=== PATIENT | male | born 1945 | race Caucasian/White ===

== ENCOUNTER → 2016-07-13 | Outpatient (CLI) | payer OTHER, MEDICARE ==
[~2016-07-13] VITALS: Ht 175.3 cm; Wt 111.1 kg
[~2016-07-13] MED LIST: BUDESONIDE EC3 MG PO; CARBIDOPA-LEVO1 EAC9 PO; FOLIC ACID1 MG PO; LIPITOR10 MG PO; REQUIP XL2 MG PO; SULFASALAZINE500 M5 PO
--- NOTE | ~2016-07-13 | S ---
[facility] [place] [address] SURGICAL PATH RPT PROCEDURE Name: EPIFANIO SORIA JR Room #: REG [facility]#: [id number] Admission: 07/13/16 Date of : 41 Discharge: Report #: [id number] Path Case #: [id number] PATHOLOGY REPORT COLLECTION DATE: 07/13/2016 RECEIVED DATE: 07/14/2016 SUBMITTING PHYS: Dr. Hugo Baires OTHER PHYS: Dr. Nicholas Reed SPECIMEN(S) RECEIVED: A.Bx of cecum and ascending colon B.Polyp at distal ascending colon C.Bx at distal ascending colon of polypectomy site D.Bx of transverse colon E.Bx of descending colon F.Bx of sigmoid colon G.Bx of rectum * * * * * * * * * * * * FINAL DIAGNOSIS: A. Large intestine, cecum and ascending colon, endoscopic biopsy: - One fragment showing a tubular adenoma without high grade dysplasia. - Remainder fragments showing mild chronic active colitis, history of Crohn's disease. - Negative for dysplasia or malignancy in the remaining fragments. B. Polyp, at distal ascending colon, endoscopic biopsy: - Tubular adenoma. - Negative for high grade dysplasia. C. Large intestine, at distal ascending colon of polypectomy site, endoscopic biopsy: - Multiple fragments showing tubular adenoma. - Negative for high grade dysplasia. D. Large intestine, biopsy of transverse colon, endoscopic biopsy: - Moderate chronic active colitis, history of Crohn's disease. - Negative for dysplasia. E. Large intestine, descending colon, endoscopic biopsy: - Moderate chronic active colitis, history of Crohn's disease. - Negative for dysplasia. F. Polyp, sigmoid colon, endoscopic biopsy: - Fragments compatible with an inflammatory polyp associated with moderate active colitis, history of Crohn's disease. - Negative for dysplasia or malignancy. G. Large intestine, rectum, endoscopic biopsy: - Mild chronic active colitis, history of Crohn's disease. - Negative for dysplasia or malignancy. COMMENT: [address] [address] [place] [address] SURGICAL PATH RPT PROCEDURE Name: EPIFANIO SORIA JR Room #: [facility]#: [id number] Admission: 07/13/16 Date of : 41 Discharge: Report #: [id number] Path Case #: [id number] Co-review (parts A, B and C only): Dr. Adenike Lynch. (IUV:csd; d/t: 07/17/2016) PATHOLOGIST: Verónica Cardozo M.D. REPORT ELECTRONICALLY SIGNED BY: Verónica Cardozo M.D. DATE/TIME: 07/17/2016 17:31 * * * * * * * * * * * * GROSS PATHOLOGY: A. Received in formalin labeled "Epifanio Rowland Jr., biopsy of cecum and ascending," are seven segments of avery soft tissue measuring 1.0 x 0.8 x 0.1 cm in aggregate dimensions and ranging from 0.2 to 0.5 cm in maximum dimension. The specimen is submitted entirely in cassette A1. B. Received in formalin labeled "Gilbert Rowland Jr., polyp at distal ascending colon," are two segments of avery soft tissue measuring 0.5 x 0.3 x 0.1 cm in aggregate dimensions and ranging from 0.1 to 0.5 cm in maximum dimension. The specimen is submitted entirely in cassette B1. C. Received in formalin labeled "Epifanio Rowland Jr., biopsy at distal ascending colon of polypectomy site," are eight segments of avery soft tissue measuring 1.1 x 1.0 x 0.2 cm in aggregate dimensions and ranging from 0.1 to 0.5 cm in maximum dimension. The specimen is submitted entirely in cassette C1. D. Received in formalin labeled "Epifanio Rowland Jr., biopsy of transverse colon," are seven segments of avery soft tissue measuring 1.0 x 1.0 x 0.1 cm in aggregate dimensions and ranging from 0.2 to 0.6 cm in maximum dimension. The specimen is submitted entirely in cassette D1. E. Received in formalin labeled "Epifanio Rowland Jr., biopsy of descending colon," are four segments of avery soft tissue measuring 0.9 x 0.9 x 0.2 cm in aggregate dimensions and ranging from 0.4 to 0.5 cm in maximum dimension. The specimen is submitted entirely in cassette E1. F. Received in formalin labeled "Epifanio Rowland Jr., polyp sigmoid colon," are four segments of avery soft tissue measuring 0.8 x 0.7 x 0.2 cm in aggregate dimensions and ranging from 0.3 to 0.5 cm in maximum dimension. The specimen is submitted entirely in cassette F1. G. Received in formalin labeled "Epifanio Rowland Jr., biopsy of rectum," are five segments of avery soft tissue measuring 1.0 x 0.9 x 0.1 cm in aggregate dimensions and ranging from 0.2 to 0.7 cm in maximum dimension. The specimen is submitted entirely in cassette G1. (CAA; 07/15/2016) CLINICAL HISTORY: [facility] [address] [place] [address] SURGICAL PATH RPT PROCEDURE Name: EPIFANIO SORIA Room #: REG [facility].#: [id number] Admission: 07/13/16 Date of : 41 Discharge: Report #: [id number] Path Case #: [id number] History of polyps, history of Crohn's disease INITIAL CPT CODE(S): A; 77639 B; 40166 C; 23451 D; 31601 E; 39213 F; 05798 G; 75450 Professional services performed by [facility] at [facility] [address] [place] [address] Technical services performed by [facility] at [address] [place] [address], [facility] [address], [place] [address]. [facility] [address] [place] [address] PHONE: [phone] DIRECTOR: Jalen Palmer M.D. * * * END OF REPORT * * *
--- NOTE | ~2016-07-13 | P ---
[facility] [place] [address] PROCEDURE REPORT Name: FRAN SORIA JR Room #: REG [facility]#: [id number] Admission: 07/13/16 Attend Phys: Hugo Baires MD Discharge: Date of : 41 Report #: [id number] THIS REPORT FOR: //name// CC: Hugo Reed DO DATE OF SERVICE: 07/13/2016 BRIEF HISTORY: The patient is a 71-year-old male known to me with a history of Crohn's disease and family history of colon cancer in his mother. He underwent a colonoscopy in early April of this year, at which time, there was found to be a sessile mucus covered polyp in the distal ascending colon. It is also noted he had evidence of active inflammatory disease by biopsy. The polyp was difficult to remove, although it was thought to be no more than about 8 mm. Pathology revealed this to be a tubular adenoma arising in an area of chronic active colitis, dysplasia. High grade dysplasia was not identified. He was placed on budesonide and taking 9 mg daily and continues on budesonide and today presents for repeat colonoscopy to evaluate the polypectomy site which had been previously tattooed. PREOPERATIVE DIAGNOSIS: Crohn's disease with polyp, questionably incomplete removed. POSTOPERATIVE DIAGNOSES: 1. Polypoid polyp distal ascending colon. 2. Diffuse active colitis, mild to moderate. MEDICATIONS: Deep sedation with propofol per anesthesia. SPECIMEN: 1. Biopsies of cecum and ascending colon. 2. Polyp, distal transverse colon, previous polypectomy site. 3. Biopsies of mucosa around polypectomy site, distal ascending colon. 4. Biopsies, transverse colon. 5. Biopsy, descending colon. 6. Biopsy, sigmoid colon. 6. Biopsies of rectum. ESTIMATED BLOOD LOSS: 3 mL. PROCEDURE: Colonoscopy to cecum with snare polypectomy, biopsy and argon plasma coagulation of polypectomy site. FINDINGS: Prior to propofol sedation, procedure of colonoscopy was reviewed with the patient as well as potential risks and its complications. He indicates [address] [address] PROCEDURE REPORT Name: FRAN SORIA Room #: [facility]#: [id number] Admission: 07/13/16 Attend Phys: Hugo Baires MD Discharge: Date of : 43 Report #: [id number] he understands and desires to proceed. DESCRIPTION OF PROCEDURE: With the patient in left lateral decubitus position, digital examination was completed which revealed no abnormalities. Subsequently, the Settle video colonoscope was introduced into the rectum, advanced under direct vision to the cecum. Done with minimal difficulty. The cecum was identified by the appendiceal orifice. I was not able to intubate the ileocecal valve, but in the retroflexed position, I could see the mouth of the ileocecal valve. It had previously been ulcerative. It was not actually ulcerative; however, there appeared to be some evidence of colitis. The mouth of the ileocecal valve was opened, but it was stenotic. Liquidy material was flowing through the stenotic ileocecal valve. At that point, the scope was slowly withdrawn and careful circumferential views were obtained. There were limitations of the prep. We cleaned up as well as possible. We were able to clean up well enough to see the proximal colon fairly well. As we withdrew the scope, there appeared to be mild to moderate inflammatory disease with loss of vascularity, mild friability of mucosa but not extensive ulceration or deep ulceration. There were some patchy areas which appeared to be less involved or normal appearing. Multiple random biopsies obtained of the cecum and ascending colon. The old polypectomy site was identified in the distal ascending colon. There was irregularity of mucosa. There was an area of heaped up mucosa about 5-6 mm across. This was removed by cold snare polypectomy. There were some irregularities of the surrounding mucosa, but it was all flat and we could not engage into the polypectomy snare. We then obtained biopsies and placed in a separate container immediately surrounding the polypectomy site. Thereafter, we treated the area with a 10-Sami argon plasma coagulation with good effect. There was good hemostasis. As the scope was withdrawn, once again there was a pattern of a mild to moderate patchy diffuse colitis throughout the colon. Multiple random biopsies were obtained. No other polypoid lesions were seen. Again, there were limitations of the prep and small lesions could have been overlooked, but the prep was salvaged with cleanup in the proximal colon to accomplish our goals today of evaluating and treating the old polypectomy site. The scope was withdrawn in the rectum. Upon retroflexion, the mucosa appeared to be fairly normal and no fistulas or ulcers were seen at the anal verge. Scope was withdrawn. The patient tolerated the procedure well. CONDITION OF THE PATIENT UPON DISCHARGE: Following procedure, the patient drowsy and arousable. He will be discharged to home when fully ambulatory. INSTRUCTIONS TO THE PATIENT AND FAMILY AT THE TIME OF DISCHARGE: Findings as noted above, the old polypectomy site was further cleaned up and treated today. We will follow up on biopsies and make further recommendations. We need to be concerned about this polyp as it originated from an area of active inflammatory bowel disease. We will follow up on biopsies, but we will likely have him return in another year to further evaluate the site. [address] [address] PROCEDURE REPORT Name: FRAN SORIA JR Room #: REG [facility]#: [id number] Admission: 07/13/16 Attend Phys: Hugo Baires MD Discharge: Date of : 43 Report #: [id number] He does have endoscopy, he does have evidence of qyga-ip-qbrhqebl disease. We will follow up on biopsies and have him return to see me in followup in the office. The patient had been on budesonide for nearly 3 months at this point in time and continues to have inflammatory disease. Symptomatically, he has improved. We will also obtain laboratory studies. May need to consider changes in his therapy for his inflammatory bowel disease. <ELECTRONICALLY SIGNED> By: Hugo Baires MD 07/14/16 1151 0831 1154 Hugo Baires MD /nt
== END ==
LOC: GI 06:23
DX: D12.2 Benign neoplasm of ascending colon (principal); D12.4 Benign neoplasm of descending colon; K63.5 Polyp of colon; K52.89 Other specified noninfective gastroenteritis and colitis; E78.00 Pure hypercholesterolemia, unspecified; K21.9 Gastro-esophageal reflux disease without esophagitis; G20 Parkinson's disease; Z87.891 Personal history of nicotine dependence; Z80.0 Family history of malignant neoplasm of digestive organs; Z85.46 Personal history of malignant neoplasm of prostate
CPT/HCPCS: 62110; 62900

== ENCOUNTER 2016-07-28 16:42 | Inpatient (IN) | payer OTHER, MEDICARE ==
[~2016-07-28] VITALS: Ht 175.3 cm; Wt 113.4 kg
--- NOTE | ~2016-07-28 | HC ---
[facility] [place] [address] CONSULTATION Name: FRAN SORIA JR Room #: 439-P [facility] IN .R.#: [id number] Admission: 07/28/16 Attend Phys: Wai Lopez MD Discharge: Date of : 43 Report #: [id number] THIS REPORT FOR: //name// CC: Wai Reed DATE OF SERVICE: 07/29/2016 DATE OF SERVICE: 07/29/2016. REASON FOR CONSULTATION: Abdominal pain and bloating with history of inflammatory bowel disease. BACKGROUND: The patient is a 71-year-old white male admitted through the emergency room with complaints of abdominal pain. He does have a history of inflammatory bowel disease and colon polyps. The patient relates that in 1999, he was diagnosed with Crohn's disease per colonoscopy by Dr. Covarrubias. A repeat colonoscopy was performed 7 years later for surveillance due to his history of Crohn's disease, and the patient relates that a large polyp that was unable to be removed as an outpatient was present. A repeat colonoscopy 2 weeks ago was performed by Dr. Baires with removal of 6 polyps that were able to be successfully removed. He relates that he was told that these polyps were benign, but repeat colonoscopy would be recommended in 1 year. With evidence of active inflammation, he was given a prescription for Entocort. With of Lialda, he was to take sulfasalazine. He has had multiple symptoms and feels that some of his symptoms may be related to the use of sulfasalazine such as headaches, weakness, nausea, anorexia, dizziness. He has had a more persistent nonproductive cough since taking sulfasalazine. He relates that his temperature was 100.2 yesterday and has been intermittently mildly elevated. He has had no other signs of infection other than intermittent cough. PAST MEDICAL HISTORY: He does have a history of Parkinson's disease, hyperlipidemia, hypertension, chronic gastroesophageal reflux, prostate cancer. He has had complicated diverticulitis with perforation, requiring partial colectomy and temporary colostomy. He underwent repair of an incisional hernia. HOME MEDICATIONS: Carbidopa/levodopa 25/100 two tablets p.o. q.i.d., Requip 2 mg t.i.d., atorvastatin 10 mg per day, folic acid 1 mg per day, sulfasalazine 1000 mg p.o. b.i.d., budesonide 10 mg per day. ALLERGIES: AUGMENTIN. SOCIAL HISTORY: He does not currently smoke cigarettes but has done in the past. He may drink alcohol occasionally. REVIEW OF SYSTEMS: [address] [address] CONSULTATION Name: FRAN SORIA Room #: 439-P [facility]..#: [id number] Admission: 07/28/16 Attend Phys: Wai Lopez MD Discharge: Date of : 43 Report #: [id number] CONSTITUTIONAL: He has had low-grade fevers as documented above. He has felt some general malaise. RESPIRATORY: He has had nonproductive cough, but no significant shortness of breath or chest pain. GASTROINTESTINAL: As per HPI. GENITOURINARY: He denies dysuria or hematuria. SKIN: He has had no skin rashes. EXTREMITIES: He has had no significant peripheral edema. PHYSICAL EXAMINATION: GENERAL: He appeared alert and in no acute distress, readily conversant and appropriate in conversation and afebrile. VITAL SIGNS: Blood pressure 110/66, pulse 72. HEENT: No scleral icterus. NECK: Supple, without lymphadenopathy. HEART: Rate and rhythm regular. LUNGS: Clear to auscultation. ABDOMEN: Soft, moderately obese with no obvious hepatosplenomegaly or palpable mass. He has an easily reducible hernia underlying mesh in the right upper abdomen. EXTREMITIES: He has no significant peripheral edema. LABORATORY STUDIES: On 07/28/2016, white blood cell count 10.4; hemoglobin 13.7; and platelet count 131,000. Initial metabolic profile included sodium 130, potassium 3.7, BUN 16, creatinine 1.1, and glucose 129. BNP was elevated at 333. DIAGNOSTIC DATA: Chest x-ray on July 28 revealed cardiac prominence without obvious other changes of congestive heart failure and some elevation of the right diaphragm with no consolidating infiltrates. CT abdomen and pelvis with contrast did reveal gaseous distention of the cecum and proximal colon which was redundant, moderate stool in the colon and a fluid distended appendix without wall thickening or stranding. IMPRESSION: 1. Constipation with abdominal bloating. 2. Inflammatory bowel disease with recent evidence of active colitis. 3. Multiple colon polyps, status post colonoscopy 2 weeks ago. 4. Nonspecific anorexia, nausea, low-grade fevers and malaise. RECOMMENDATIONS: 1. Discontinue sulfasalazine. 2. Continue Entocort. 3. MiraLax 17 grams per day. [facility] [address] [place] [address] CONSULTATION Name: FRAN SORIA JR Room #: 43-P ADM IN M.R.#: [id number] Admission: 07/28/16 Attend Phys: Wai Lopez MD Discharge: Date of : 43 Report #: [id number] 4. If clinically improved, he may be discharged and keep his appointment with Dr. Baires as already scheduled on 07/31/2016. <ELECTRONICALLY SIGNED> By: Ahmet Alegria MD 07/30/16 0745 1242 [id number] Ahmet Alegria MD /nt
--- NOTE | ~2016-07-28 | EKG ---
[address] [address] ELECTROCARDIOGRAM REPORT Name: FRAN SORIA Room #: 439-P [facility] IN ..#: [id number] Admission: 07/28/16 Attend Phys: Wai Lopez MD Discharge: Date of : 43 Report #: [id number] THIS REPORT FOR: //name// [facility] ED Test Date: 2016-07-28 Test Time: 17:42:24 Pat Name: FRANFAHEEM DIETRICHSORIA Department: Room: 43 Gender: M Reporting Specialist: Adilson ELIZONDO : 1945 Requested By: Bela Fields Order Number: [id number] MD: Lui Delgado Measurements Intervals Elsa Rate: 80 P: 37 SC: 184 QRS: -3 QRSD: 102 T: 21 QT: 366 QTc: 423 Interpretive Statements Sinus rhythm No previous ECG available for comparison Electronically Signed On 07-29-2016 16:18:15 CDT by Lui Delgado [email or web address] <ELECTRONICALLY SIGNED> By: Lui Delgado MD 07/29/16 [phone] Lui Delgado MD /DOMENIC
[2016-07-28 16:45] VITALS: BP 121/78
[2016-07-28 17:27] LABS: URINE BLOOD TRACE (Negative); URINE COLOR YELLOW; URINE GLUCOSE-RANDOM* NEGATIVE (Negative); URINE KETONES 2+ (Negative); URINE NITRITE NEGATIVE (Negative); URINE PROTEIN (DIPSTICK) 1+ (Negative); URINE SPECIFIC GRAVITY 1.025 (1.003-1.035)
[2016-07-28 17:28] LABS: URINE BILIRUBIN NEGATIVE (Negative)
[2016-07-28 17:30] LABS: SQUAMOUS None Seen /LPF (0-3)
[2016-07-28 17:30] LABS: HEMATOCRIT 39.8 % (42.0-52.0); HEMOGLOBIN 13.7 gm/dL (14.0-18.0); MCH 31.6 pg (26.0-34.0); MCHC 34.5 g/dL (28.0-37.0); MCV 91.5 fL (80.0-100.0); PLATELET COUNT 131 thou/uL (150-400); RBC 4.34 mil/uL (4.50-6.00); RDW 14.2 % (10.5-14.5); WBC 10.4 thou/uL (4.0-11.0)
[2016-07-28 17:31] LABS: BACTERIA None Seen /HPF (None Seen); CASTS None Seen /LPF (None Seen); CRYSTALS None Seen /LPF (None Seen); URINE RBC 0-2 Rare /HPF (0-2); URINE WBC None Seen /HPF (0-5)
[2016-07-28 17:32] LABS: MANUAL DIFF YES
[2016-07-28 17:44] LABS: CREATININE 1.1 mg/dL (0.7-1.3); POTASSIUM 3.7 mmol/L (3.5-5.1)
[2016-07-28 17:48] LABS: ALBUMIN 3.5 g/dL (3.4-5.0); TOTAL BILIRUBIN 0.9 mg/dL (<0.1-1.0); TOTAL PROTEIN 7.4 g/dL (6.4-8.2)
[2016-07-28 17:50] LABS: TOTAL CELL COUNT 100
[2016-07-28 17:52] LABS: ANISOCYTOSIS 2+; POLYCHROMASIA OCCASIONAL
[2016-07-28 18:30] LABS: NT-PRO BRAIN NAT PEPTIDE 333 pg/mL (<300); TROPONIN-I < 0.04 ng/mL (<0.04-0.07)
[2016-07-28 19:45] VITALS: BP 89/57
[2016-07-28 20:05] VITALS: BP 102/56
[2016-07-29 03:23] LABS: HEMATOCRIT 35.7 % (42.0-52.0); HEMOGLOBIN 12.3 gm/dL (14.0-18.0); MCH 32.1 pg (26.0-34.0); MCHC 34.5 g/dL (28.0-37.0); MCV 92.8 fL (80.0-100.0); RBC 3.85 mil/uL (4.50-6.00); RDW 14.4 % (10.5-14.5)
[2016-07-29 03:40] VITALS: BP 110/66
[2016-07-29 03:44] LABS: CALCIUM 8.2 mg/dL (8.5-10.1); CREATININE 1.1 mg/dL (0.7-1.3); POTASSIUM 3.3 mmol/L (3.5-5.1)
[2016-07-29 17:04] VITALS: BP 108/57
[2016-07-29 19:22] VITALS: BP 109/70
[2016-07-30 03:56] LABS: CALCIUM 8.4 mg/dL (8.5-10.1); CREATININE 1.1 mg/dL (0.7-1.3); POTASSIUM 3.3 mmol/L (3.5-5.1)
[2016-07-30 04:09] VITALS: BP 124/80
[2016-07-30 11:54] VITALS: BP 124/80
== END 2016-07-30 14:38 | disposition home or self-care (01) | DRG 392 ==
LOC: ER 16:42 → EROBS 19:40 → 4S 20:19
PROVIDERS: Internal Medicine Endocrinology, Diabetes & Metabolism; Nurse Practitioner Family
DX: K59.00 Constipation, unspecified (principal); K50.90 Crohn's disease, unspecified, without complications; E87.1 Hypo-osmolality and hyponatremia; G20 Parkinson's disease; K52.9 Noninfective gastroenteritis and colitis, unspecified; K52.3 Indeterminate colitis; R14.0 Abdominal distension (gaseous); E78.00 Pure hypercholesterolemia, unspecified; I10 Essential (primary) hypertension; K21.9 Gastro-esophageal reflux disease without esophagitis; G40.901 Epilepsy, unspecified, not intractable, with status epilepticus; E86.0 Dehydration; E78.5 Hyperlipidemia, unspecified; K63.5 Polyp of colon; Z79.899 Other long term (current) drug therapy; Z85.46 Personal history of malignant neoplasm of prostate; Z92.3 Personal history of irradiation; Z88.1 Allergy status to other antibiotic agents; Z88.8 Allergy status to other drugs, medicaments and biological substances; Z87.891 Personal history of nicotine dependence; Z90.49 Acquired absence of other specified parts of digestive tract
CPT/HCPCS: 10195

== ENCOUNTER 2016-08-29 07:43 | Inpatient (IN) | payer OTHER, MEDICARE ==
[~2016-08-29] VITALS: Ht 172.7 cm; Wt 115.8 kg
--- NOTE | ~2016-08-29 | HC ---
[facility] [place] [address] CONSULTATION Name: YANGFRANNeno Torres JR Room #: 310-P [facility] IN .R.#: [id number] Admission: 08/29/16 Attend Phys: Sang Levi MD Discharge: 09/01/16 Date of : 43 Report #: [id number] THIS REPORT FOR: //name// CC: Hugo Baires Sang Levi [facility] DATE OF SERVICE: 08/29/2016 CHIEF COMPLAINT: Abdominal pain. CONSULTING PHYSICIAN: Sang Levi MD, with hospitalist medicine. HISTORY OF PRESENT ILLNESS: The patient is a very pleasant 71-year-old gentleman with history of multiple prior abdominal operations. He had previously undergone Robert's sigmoidectomy with colostomy placement and then subsequent reversal. He developed a large midline hernia and then underwent ventral hernia repair with a large sheet of mesh per his report. All these procedures were performed at an outside facility in [place]. Today, the patient has been admitted with 1 day history of abdominal distention with cramping, diffuse pain, it is intermittent in nature. The patient also has a history of Crohn's disease and Parkinson disease. The patient also reports frequent nausea and belching over the past 24 hours. He states that he has continued pass small amount of flatus over the past 1 to 2 days. He also had had a bowel movement the morning of this evaluation. Pertinent labs showed a lactate of 1.9 and normal lipase level. No history of hematochezia, melena, fever, or chills. PAST MEDICAL HISTORY: As described positive for Parkinson's, hyperlipidemia, Crohn's disease, hypertension, gastroesophageal reflux disease, prostate cancer status post radiation therapy, and previous colonic perforation secondary to diverticulitis. PAST SURGICAL HISTORY: As described above, Robert's sigmoid colectomy with subsequent reversal, ventral incisional hernia with repair utilizing mesh, and most recent colonoscopy in July 2016 with polyps noted. MEDICATIONS: The patient is on no medication for prevention of Crohn's flare. SOCIAL HISTORY: Former smoker for 40 years, stopped greater than one year ago. Social ETOH. Negative for illicit drug use. REVIEW OF SYSTEMS: CONSTITUTIONAL: Negative for fevers, chills, or unwanted weight loss. OCULAR: No diplopia or visual change. HEENT: No dysphagia or odynophagia. No voice changes. PULMONARY: No productive cough. No shortness of breath. No hemoptysis. CARDIOVASCULAR: No chest pain or palpitations. GASTROINTESTINAL: Positive for abdominal pain and nausea. Negative for emesis, melena, or hematochezia. GENITOURINARY: No dysuria or hematuria. [address] [address] CONSULTATION Name: FRAN SORIA Room #: 310-P [facility] IN M.R.#: [id number] Admission: 08/29/16 Attend Phys: Sang Levi MD Discharge: 09/01/16 Date of : 43 Report #: [id number] MUSCULOSKELETAL: No back pain or joint swelling. CUTANEOUS: Negative for rashes or skin lesions. NEUROLOGIC: No focal weakness, tingling, or numbness. PSYCHIATRIC: No anxiety or depression. ENDOCRINE: No heat or cold intolerance. PHYSICAL EXAMINATION: GENERAL: The patient is awake, alert and oriented. He is distended and is uncomfortable, but in no acute distress. He does give appropriate history. HEENT: Head is atraumatic and normocephalic. Pupils are equally round and reactive to light and no icterus is appreciated. HEART: Regular without murmur. NECK: No jugular venous distention. LUNGS: Clear to auscultation bilateral. No respiratory distress. ABDOMEN: Soft and distended. No rebound or guarding is appreciated. Multiple well-healed surgical scars including a long midline incision and a left mid abdomen colostomy reversal site. SKIN: Without lesions or rashes. EXTREMITIES: Showed good perfusion with distal pulses intact. NEUROLOGIC: No focal weakness appreciated. No focal deficits. LABORATORY STUDIES: Reviewed. This showed a basic metabolic profile was essentially normal, although with slightly elevated glucose at 197, hemoglobin A1c of 5.7, lactate of 1.9, BUN of 25, and creatinine 1.0. AST of 24, ALT of 21, alk phos of 44, lipase of 95. White count of 10.3, hemoglobin of 14.5, platelets of 159, 82.8% segmental neutrophils. CT scan of the abdomen and pelvis with contrast was obtained in the emergency department, this is reviewed in detail. There does appear to be a transition zone in the lower abdomen with more decompressed distal small-bowel and more distended proximal small-bowel, the colon has significant retained stool throughout the colon. No free air or free fluid is appreciated. IMPRESSION: 71-year-old male patient with history of Crohn's and Parkinson's as well as multiple prior abdominal operations. Partial small-bowel obstruction noted. No peritonitis at this time. Recommend that the patient to undergo nasogastric decompression of the GI tract. Discussed this with the patient and at this time, the patient declines. No immediate general surgical intervention recommended. We would recommend IV fluid hydration with careful correction of his electrolytes. We will continue to follow closely with serial abdominal examinations. Consultation very much appreciated. <ELECTRONICALLY SIGNED> By: Mitchell Matthews MD 09/04/16 1123 1018 1054 Mitchell Matthews MD /bernabe
--- NOTE | ~2016-08-29 | EKG ---
[address] [place] [address] ELECTROCARDIOGRAM REPORT Name: FRAN SORIA Room #: 310-P ADM IN M.R.#: [id number] Admission: 08/29/16 Attend Phys: Sang Levi MD Discharge: Date of : 41 Report #: [id number] THIS REPORT FOR: //name// [facility] ED Test Date: 2016-08-29 Test Time: 08:10:41 Pat Name: FRAN SORIA Department: Room: [facility] Gender: M Security Public Safety Officer: silvestre : 1945 Requested By: Jerry Landa Order Number: [id number] MD: Del Crespo Measurements Intervals [place] Rate: 70 P: 12 WA: 168 QRS: -22 QRSD: 103 T: 17 QT: 396 QTc: 428 Interpretive Statements Sinus rhythm No significant abnormality Compared to ECG 07/28/2016 17:42:24 No significant changes Electronically Signed On 08-30-2016 7:47:09 CDT by Del Crespo [email or web address] <ELECTRONICALLY SIGNED> By: Del Crespo MD, [facility] 08/30/16 0747 9 9 Del Crespo MD, [facility] /EPI
[2016-08-29 07:52] VITALS: BP 176/102
[2016-08-29 08:16] LABS: ABSOLUTE NEUTROPHILS 8.6 thou/uL (1.4-8.2); BASOPHILS 0.4 % (0.0-2.0); EOSINOPHILS 0.1 % (0.0-3.0); HEMOGLOBIN 14.5 gm/dL (14.0-18.0); LYMPHOCYTES 10.5 % (24.0-44.0); MCHC 34.6 g/dL (28.0-37.0); MCV 92.4 fL (80.0-100.0); MONOCYTES 6.2 % (1.0-8.0); PLATELET COUNT 159 thou/uL (150-400); POLYS 82.8 % (36.0-66.0); RBC 4.54 mil/uL (4.50-6.00); RDW 14.2 % (10.5-14.5); WBC 10.3 thou/uL (4.0-11.0)
[2016-08-29 08:17] LABS: MANUAL DIFF NO
[2016-08-29 08:24] LABS: ANION GAP 10 mmol/L (7-16); BUN 25 mg/dL (7-18); CALCIUM 9.4 mg/dL (8.5-10.1); CHLORIDE 101 mmol/L (98-107); CO2 27 mmol/L (21-32); GLUCOSE 197 mg/dL (74-106); POTASSIUM 3.9 mmol/L (3.5-5.1); SODIUM 138 mmol/L (136-145)
[2016-08-29 08:33] LABS: ALBUMIN 3.7 g/dL (3.4-5.0); ALKALINE PHOSPHATASE 44 U/L (46-116); SGOT 24 U/L (15-37); SGPT 21 U/L (30-65); TOTAL BILIRUBIN 0.5 mg/dL (<0.1-1.0); TOTAL PROTEIN 7.4 g/dL (6.4-8.2); TROPONIN-I < 0.04 ng/mL (<0.04-0.07)
[2016-08-29 13:05] VITALS: BP 154/104
[2016-08-29 14:25] VITALS: BP 154/104
[2016-08-29 16:15] VITALS: BP 142/93
[2016-08-29 19:55] VITALS: BP 142/94
[2016-08-29] MEDS ORDERED: ROPINIROLE HCL2 M1 PO (20:01)
[2016-08-29] MEDS ORDERED: RYTARY ER 36.21 EACH PO (20:03)
[2016-08-29 23:45] VITALS: BP 141/96
[2016-08-30 03:07] LABS: GLYCOHEMOGLOBIN (HGB A1C) 5.7 % (4.8-5.6)
[2016-08-30 03:26] VITALS: BP 116/78
[2016-08-30 08:05] VITALS: BP 137/82
[2016-08-30 09:12] LABS: HEMATOCRIT 41.1 % (42.0-52.0); HEMOGLOBIN 13.9 gm/dL (14.0-18.0); MCH 31.9 pg (26.0-34.0); MCHC 33.8 g/dL (28.0-37.0); MCV 94.4 fL (80.0-100.0); RBC 4.35 mil/uL (4.50-6.00); RDW 14.7 % (10.5-14.5); WBC 4.9 thou/uL (4.0-11.0)
[2016-08-30 09:21] LABS: CALCIUM 8.7 mg/dL (8.5-10.1); CREATININE 1.1 mg/dL (0.7-1.3); POTASSIUM 4.3 mmol/L (3.5-5.1)
[2016-08-30 16:53] VITALS: BP 122/81
[2016-08-30 19:41] VITALS: BP 142/87
[2016-08-31 04:14] VITALS: BP 133/80
[2016-08-31 07:01] LABS: HEMATOCRIT 36.4 % (42.0-52.0); HEMOGLOBIN 12.4 gm/dL (14.0-18.0); MCH 32.4 pg (26.0-34.0); MCHC 34.2 g/dL (28.0-37.0); MCV 94.8 fL (80.0-100.0); RBC 3.84 mil/uL (4.50-6.00); RDW 14.7 % (10.5-14.5); WBC 3.9 thou/uL (4.0-11.0)
[2016-08-31 07:14] LABS: POTASSIUM 3.9 mmol/L (3.5-5.1)
[2016-08-31 08:00] VITALS: BP 138/87
[2016-08-31 16:00] VITALS: BP 139/86
[2016-08-31 20:00] VITALS: BP 114/79
[2016-09-01 04:00] VITALS: BP 126/76
[2016-09-01 05:48] LABS: HEMATOCRIT 34.6 % (42.0-52.0); HEMOGLOBIN 11.7 gm/dL (14.0-18.0); MCH 31.9 pg (26.0-34.0); MCHC 33.8 g/dL (28.0-37.0); MCV 94.6 fL (80.0-100.0); RBC 3.66 mil/uL (4.50-6.00); RDW 14.3 % (10.5-14.5)
[2016-09-01 06:07] LABS: CALCIUM 7.8 mg/dL (8.5-10.1); CREATININE 0.9 mg/dL (0.7-1.3); POTASSIUM 3.6 mmol/L (3.5-5.1)
[2016-09-01 07:57] VITALS: BP 139/89
[2016-09-01 15:59] VITALS: BP 139/89
== END 2016-09-01 16:44 | disposition home or self-care (01) | DRG 390 ==
LOC: ER 07:43 → 3N 11:25 → EROBS 11:26 → 3N 11:26
PROVIDERS: Emergency Medicine; Internal Medicine; Nurse Practitioner
PROC: 0DJ08ZZ Inspection of Upper Intestinal Tract, Via Natural or Artificial Opening Endoscopic (ICD-10-PCS; principal; 2016-08-29)
DX: K56.60 Unspecified intestinal obstruction (principal); K29.70 Gastritis, unspecified, without bleeding; K31.7 Polyp of stomach and duodenum; K31.89 Other diseases of stomach and duodenum; D69.6 Thrombocytopenia, unspecified; G20 Parkinson's disease; E78.00 Pure hypercholesterolemia, unspecified; I10 Essential (primary) hypertension; K21.9 Gastro-esophageal reflux disease without esophagitis; R73.9 Hyperglycemia, unspecified; E78.5 Hyperlipidemia, unspecified; Z85.46 Personal history of malignant neoplasm of prostate; Z92.3 Personal history of irradiation; Z87.19 Personal history of other diseases of the digestive system; Z87.891 Personal history of nicotine dependence; Z88.1 Allergy status to other antibiotic agents; Z88.8 Allergy status to other drugs, medicaments and biological substances; Z82.49 Family history of ischemic heart disease and other diseases of the circulatory system; Z83.3 Family history of diabetes mellitus
CPT/HCPCS: 10795

== ENCOUNTER → 2017-08-02 | Outpatient (CLI) | payer OTHER, MEDICARE ==
[~2017-08-02] VITALS: Ht 177.8 cm; Wt 95.3 kg
[~2017-08-02] MED LIST changes: +ASPIR 8181 MG PO; +LIALDA1.2 GM PO; +ROPINIROLE HCL2 M1 PO; +RYTARY ER 36.21 EACH PO
--- NOTE | ~2017-08-02 | P ---
[facility] [place] [address] PROCEDURE REPORT Name: FRAN SORIA JR Room #: REG [facility]#: [id number] Admission: 08/02/17 Attend Phys: Hugo Baires MD Discharge: Date of : 41 Report #: [id number] THIS REPORT FOR: //name// CC: Hugo Reed DO DATE OF SERVICE: 08/02/2017 OUTPATIENT COLONOSCOPY NOTE BRIEF HISTORY: The patient is a 72-year-old male well known to me with history of inflammatory bowel disease and also history of colon polyps and area of active inflammatory disease. Polyp in the distal ascending colon was difficult to remove and he returns for followup examination to ensure complete polypectomy. His previous biopsy showed active inflammatory disease. PREOPERATIVE DIAGNOSIS: Chronic colitis with adenomatous sessile adenomatous polyp with followup biopsy to ensure complete polypectomy. POSTOPERATIVE DIAGNOSIS: Moderate diffuse pancolitis. MEDICATIONS: Deep sedation with propofol per anesthesia. SPECIMEN: 1. Biopsies of cecum and ascending colon. 2. Biopsies of old polypectomy site, distal ascending colon. 3. Biopsy of transverse colon. 4. Biopsy of descending colon. 5. Biopsy of sigmoid colon. 6. Biopsies of rectum. ESTIMATED BLOOD LOSS: 5 mL. PROCEDURE: Colonoscopy to cecum with biopsy. FINDINGS: Prior to propofol sedation, the procedure of colonoscopy was discussed with the patient as well as potential risks and its complications. He indicates he understands and desires to proceed. DESCRIPTION OF PROCEDURE: With the patient in left lateral decubitus position, digital examination was completed which revealed no abnormalities. Subsequently, an Olympus video colonoscope was introduced into the rectum and advanced under direct vision to the cecum. It was done with minimal difficulty. Unfortunately, there were limitations of prep and there was liquidy material with particulate material in the cecum. Due to clogging of the scope, we could not aspirate all the material. This pool of fluid was over the area of, I [facility] [address] [place] [address] PROCEDURE REPORT Name: FRAN SORIA JR Room #: [facility].#: [id number] Admission: 08/02/17 Attend Phys: Hugo Baires MD Discharge: Date of : 43 Report #: [id number] believe, the appendiceal orifice. Appendiceal orifice was not seen. However, we could see the ileocecal valve tangentially. Multiple attempts were made to cross the ileocecal valve without success. At that point, scope was withdrawn and careful circumferential views were obtained including retroflexing the scope in the ascending colon. As we withdrew the scope, the prep was fair. There were scattered pools of liquidy material with particulate material which could not be completely aspirated from the lumen of the colon. As we withdrew the scope, there was noted to be diffuse erythema and some edema and loss of vascularity. However, active ulceration was not seen. As we withdrew the scope, random biopsies were obtained of the colon throughout. In the distal ascending colon, the tattoo meneses were identified at the previous polypectomy site. There was some irregularity in the mucosa and the area was flat. An obvious polyp was not seen. This area was involved with colitis as well. Multiple biopsies were taken at the previous polypectomy site. We further withdrew the scope and again a diffuse colitis persisted throughout the colon. Although this mucosa was erythematous, there was no bleeding and friability was minimal. Random biopsies were obtained. No additional polyps were seen. No additional abnormalities were seen. The scope was withdrawn in the rectum. Upon retroflexion, no abnormalities were seen. Scope was withdrawn. The patient tolerated the procedure well. CONDITION OF THE PATIENT UPON DISCHARGE: The patient was drowsy, arousable, and conversant and will be discharged home when fully ambulatory. INSTRUCTIONS TO THE PATIENT AND FAMILY AT THE TIME OF DISCHARGE: The patient with previous difficult polypectomy. We will follow up on biopsies of the old polypectomy site. If residual polyp tissue remains, we will need to discuss options with the patient including repeat colonoscopy and fulguration of the entire area versus surgical management. That was a difficult decision in view of his inflammatory bowel disease if colon surgery should be required. Also, he currently is on Lialda. We will follow up on biopsies and have the patient return to the office for followup to discuss further medical management. He has been treated with budesonide in the past, but endoscopically appears to have active disease, which is in the [id number] range. However, once again, the patient is relatively asymptomatic and actually complains more constipation than diarrhea. He has not had any abdominal pain or rectal bleeding. Again, we will have the patient to return to the office for followup to discuss the options going forward. Last colonoscopy was about a year ago. His current colonoscopy was done to [address] [address] PROCEDURE REPORT Name: FRAN SORIA Room #: REG [facility] Nair#: [id number] Admission: 08/02/17 Attend Phys: Hugo Baires MD Discharge: Date of : 41 Report #: [id number] check for a complete polypectomy and to finish polypectomy if needed. Withdrawal time from the cecum was 14 minutes 24 seconds. <ELECTRONICALLY SIGNED> By: Hugo Baires MD 08/03/17 1723 0813 1139 Hugo Baires MD /nt
== END | disposition home or self-care (01) ==
LOC: GI 06:21
DX: Z09 Encounter for follow-up examination after completed treatment for conditions other than malignant neoplasm (principal); K51.00 Ulcerative (chronic) pancolitis without complications; K52.9 Noninfective gastroenteritis and colitis, unspecified; G20 Parkinson's disease; I10 Essential (primary) hypertension; E78.00 Pure hypercholesterolemia, unspecified; K21.9 Gastro-esophageal reflux disease without esophagitis; E78.5 Hyperlipidemia, unspecified; Z86.010 Personal history of colon polyps; Z87.891 Personal history of nicotine dependence; Z85.46 Personal history of malignant neoplasm of prostate; Z98.890 Other specified postprocedural states; Z79.899 Other long term (current) drug therapy; Z79.82 Long term (current) use of aspirin; Z88.8 Allergy status to other drugs, medicaments and biological substances
CPT/HCPCS: 62110; 62900

== ENCOUNTER → 2017-12-06 | Outpatient (CLI) | payer OTHER, MEDICARE ==
[~2017-12-06] VITALS: Ht 177.8 cm; Wt 108.9 kg
[~2017-12-06] MED LIST changes: +BUDESONIDE PO; +IBUPROFEN 400400 M2 PO
--- NOTE | ~2017-12-06 | P ---
[facility] [place] [address] PROCEDURE REPORT Name: FRAN SORIA JR [id number] Admission: 12/06/17 Attend Phys: Hugo Baires MD Discharge: Date of : 43 Report #: [id number] THIS REPORT FOR: //name// CC: Hugo Reed DO DATE OF SERVICE: 12/06/2017 BRIEF HISTORY: The patient is a 72-year-old male patient with a history of inflammatory bowel disease. He has a history of colon polyps. He also has had active inflammatory disease and at the time of his previous colonoscopy, active inflammatory disease was identified and therefore, a mucosal detail was not well seen. Biopsies taken in his colon in the region of a previous polypectomy site revealed adenomatous tissue, although a definite polyp was not seen. It is also noted that his prep was limited at that time and some areas of the colon could not be well visualized. The plan was to treat his colitis and to clear up the mucosa, so we could determine whether or not he has polyps or dysplasia associated lesions or masses. He has been on budesonide for 3 months. It is also noted that his mother and brother had colon cancer. At this time, after 3 months of budesonide, he has no symptoms and has normal bowel habits without diarrhea or rectal bleeding. PREOPERATIVE DIAGNOSES: History of Crohn's disease, family history of colon cancer, personal history of colon cancer and abnormal biopsies raising the possibility of a dysplasia associated mass or lesion associated with inflammatory bowel disease. POSTOPERATIVE DIAGNOSES: 1. A flat lesion, distal ascending colon, possible dysplasia associated mass or lesion. 2. Mild diffuse colitis. MEDICATIONS: Deep sedation with propofol per anesthesia. SPECIMENS: 1. Random biopsy of cecum and ascending colon. 2. Biopsies flat lesion distal ascending colon, questionable dysplasia associated lesion or mass. 3. Biopsy mucosa at the polypectomy site. 4. Random biopsies, transverse colon. 5. Random biopsies, descending colon. 6. Renal biopsy, sigmoid colon. 7. Random biopsies, rectum. ESTIMATED BLOOD LOSS: [address] [address] PROCEDURE REPORT Name: FRAN SORIA Room #: REG [facility]#: [id number] Admission: 12/06/17 Attend Phys: Hugo Baires MD Discharge: Date of : 41 Report #: [id number] PROCEDURE: Colonoscopy to cecum and terminal ileum with biopsy findings. DESCRIPTION OF PROCEDURE: With the patient in left lateral decubitus position, digital examination was completed, which revealed no abnormalities. Subsequently, the Olympus video colonoscope was introduced in the rectum and advanced under direct vision to the cecum. This was done with minimal difficulty. The cecum was identified by the ileocecal valve and the appendiceal orifice. On this occasion, I was able to visualize the ileocecal valve. Initially, it appeared to be stenotic, but also, we were able to pass the scope across the ileocecal valve and into the distal terminal ileum, which was normal. No ulcers or inflammatory changes were seen. At that point, the scope was slowly withdrawn and careful circumferential views were obtained. As we withdrew the scope, there were some areas with some residual material. However, today we were able to clean up much of this material and overall, a good prep was obtained with cleanup efforts. As we withdrew the scope, the mucosa appeared to be somewhat erythematous. Throughout the colon, there was some loss of vascularity and some areas of disorganized vascularity. However, upper sioux ulcers were not seen. As we withdrew the scope, the distal ascending colon, tattoo meneses were seen and in the region of the tattoo, there was an irregular fold with a scalloped appearance. Also, the mucosa surrounding this fold was abnormal with nodular changes, which was completely flat. It was extremely difficult to visualize the edges of the margin of this lesion, but as best I can determine, it was at least 2-3 cm in its greatest dimension. We also used a narrow-band imaging, which did help delineate the lesion somewhat more. The abnormal changes appeared to involve both sides of the fold. We initially tried to elevate the lesion with saline, but it would not elevate. After careful inspection with white light and narrow-band imaging, it was felt best to biopsy this lesion. We considered fulgurating the lesion, but this may be dysplasia associated lesion or mass and this may be best managed surgically. Multiple biopsies were obtained of the lesion. We also obtained biopsies of what appeared to be uninvolved mucosa around the lesion, as best as we could determine. Scope was further withdrawn and the pattern of mucosa was same throughout the colon with loss of vascular erythema and some areas of disorganized vasculature. No additional polypoid lesions, masses or ulcers were seen. The scope was withdrawn in the rectum. Upon retroflexion, no abnormalities were seen. Scope was withdrawn. The patient tolerated the procedure well. CONDITION OF THE PATIENT UPON DISCHARGE: Following procedure, the patient drowsy, arousable and conversant and will be discharged to home when fully ambulatory. INSTRUCTIONS TO THE PATIENT AND FAMILY AT THE TIME OF DISCHARGE: We will follow up on pathology. At this point in time, it may be in his best interest to undergo surgical resection of this lesion. I am not sure this lesion could be [facility] [place] [address] [place] [address] PROCEDURE REPORT Name: FRAN SORIA Room #: [facility]#: [id number] Admission: 12/06/17 Attend Phys: Hugo Baires MD Discharge: Date of : 41 Report #: [id number] completely managed endoscopically. We will discuss further with the patient. Another consideration is that he be seen at a tertiary center for another opinion with regards to management of this lesion. At this point in time, we will have him continue the budesonide. We will have him return for followup in the office in the next several weeks to further discuss and review of the pathology. <ELECTRONICALLY SIGNED> By: Hugo Baires MD 12/10/17 1948 0910 1543 Hugo Baires MD /nt
--- NOTE | ~2017-12-06 | PATH ---
[facility] [place] [place] [address] PATHOLOGY RPT PROCEDURE Name: EPIFANIO NEELY Room #: REG [facility].#: [id number] Admission: 12/06/17 Date of : 41 Discharge: Report #: [id number] Path Case #: [id number] [facility] Accession Number: [id number] . 01 Material submitted: . PART A: BX CECUM TO ASCENDING COLON PART B: BX OF FLAT POLYP DISTAL ASCENDING COLON PART C: BX OF MUCOSA AT POLYP SITE PART D: BX TRANSVERSE COLON, RANDOM PART E: BX DESCENDING COLON, RANDOM PART F: BX SIGMOID COLON, RANDOM PART G: BX RECTUM, RANDOM . 01 Clinical history: . History Crohn's disease Colon polyps A, D, E, F, G: History Crohn's B: Question of DALM? previous polypectomy site C: Rule out dysplasia . 02 Diagnosis: A. Colonic mucosa "biopsy cecum to ascending colon history of Crohn's": - Mildly active chronic colitis with rare cryptitis and moderate lamina propria chronic inflammation. - There is no evidence of dysplasia or maligancy. See comment. . B. Colonic mucosa "biopsy of flat polyp distal ascending colon": - Fragments of tubular adenoma. - There is no obvious high-grade dysplasia or malignancy. See comment. . C. Colonic mucosa "biopsy of mucosa at polyp site R/O dysplasia": - Fragments of tubular adenoma. - There is no evidence of high-grade dysplasia or malignancy. See comment. . D. Colonic mucosa "biopsy transverse colon random history of Crohn's": - Mildly active chronic colitis with rare cryptitis and moderate lamina propria chronic inflammation and architectural distortion. - Occasional multinucleated giant cells are seen. - There findings are consistent with inflammatory bowel disease. - History of Crohn's noted. . E. Colonic mucosa "biopsy descending colon, random": - Mildly active chronic colitis. - History of Crohn's noted. - There is no evidence of high-grade dysplasia or malignancy. . F. Colonic mucosa "biopsy sigmoid colon random": [address] [address] PATHOLOGY RPT PROCEDURE Name: EPIFANIO NEELY Room #: REG [facility] Cob[place].#: [id number] Admission: 12/06/17 Date of : 41 Discharge: Report #: [id number] Path Case #: [id number] - Mildly active chronic colitis. - History of Crohn's noted. - There is no evidence of dysplasia or malignancy. . G. Colonic mucosa "biopsy rectum random": - Mildly active chronic colitis. - History of Crohn's noted. - There is no evidence of dysplasia or malignancy. (SHA:mohamud; 12/10/2017) QMS/12/10/2017 . 02 Comment: A. History of Crohn's noted. There is no dysplasia or malignancy. . B and C. This case is also reviewed by Dr.Ambreen Hickey . 02 Electronically signed: . Miguel Angel Marquez MD, Pathologist NPI- [id number] . 01 Gross description: . A. The specimen is received in formalin, labeled "Epifanio Neely Jr, BX cecum to ascending colon" and consists of multiple fragments of soft avery tissue measuring 1.1 x 0.6 x 0.3 cm in aggregate which are entirely submitted in A1. . B. The specimen is received in formalin, labeled "Epifanio Neely Jr, BX of flat polyp distal ascending colon" and consists of multiple fragments of soft avery tissue measuring 1.3 x 0.7 x 0.3 cm in aggregate which are entirely submitted in B1. . C. The specimen is received in formalin, labeled "Epifanio Neely Jr, BX of mucosa at polyp site" and consists of multiple fragments of soft avery tissue measuring 1.1 x 0.6 x 0.3 cm in aggregate which are entirely submitted in C1. . D. The specimen is received in formalin, labeled "Epifanio Neely Jr, BX transverse colon, random" and consists of multiple fragments of soft avery tissue measuring 1.5 x 0.6 x 0.2 cm in aggregate which are entirely submitted in D1. . E. The specimen is received in formalin, labeled "Epifanio Neely Jr, BX descending colon, random" and consists of multiple fragments of soft avery tissue measuring 1.9 x 0.6 x 0.2 cm in aggregate which are entirely submitted in E1. . F. The specimen is received in formalin, labeled "Epifanio Neely Jr, [facility] [address] [place] [address] PATHOLOGY RPT PROCEDURE Name: EPIFANIO NEELY Room #: REG [facility] Nair#: [id number] Admission: 12/06/17 Date of : 41 Discharge: Report #: [id number] Path Case #: [id number] BX sigmoid colon, random" and consists of multiple fragments of soft avery tissue measuring 1.1 x 0.7 x 0.3 cm in aggregate which are entirely submitted in F1. . G. The specimen is received in formalin, labeled "Epifanio Neely Jr, BX rectum, random" and consists of multiple fragments of soft avery tissue measuring 1.3 x 0.7 x 0.3 cm in aggregate which are entirely submitted in G1. (SDY; 12/07/2017) SYU/SYU . 02 Pathologist provided ICD-10: D12.2, D12.6, K52.9, K58.9, Z87.19 . 02 CPT . 512040, 369563, 514210, 252909, 657979, 965066, 534222 Specimen Comment: A courtesy copy of this report has been sent to Specimen Comment: [phone], . Specimen Comment: Report sent to / DR GARNETT Performed at: [address] [facility], [place], [place] [id number] MD Jed Mendiola MD Phone: [phone] Performed at: [address] [facility] [id number] MD Verónica Cardozo MD Phone: [phone]
== END | disposition home or self-care (01) ==
LOC: GI 12-03 15:57
DX: D12.2 Benign neoplasm of ascending colon (principal); D12.6 Benign neoplasm of colon, unspecified; K58.9 Irritable bowel syndrome, unspecified; Z86.010 Personal history of colon polyps; Z80.0 Family history of malignant neoplasm of digestive organs; G20 Parkinson's disease; E78.00 Pure hypercholesterolemia, unspecified; E78.5 Hyperlipidemia, unspecified; Z98.0 Intestinal bypass and anastomosis status; Z98.41 Cataract extraction status, right eye; Z87.891 Personal history of nicotine dependence; Z98.42 Cataract extraction status, left eye; Z98.890 Other specified postprocedural states; Z85.46 Personal history of malignant neoplasm of prostate; Z88.2 Allergy status to sulfonamides; Z88.8 Allergy status to other drugs, medicaments and biological substances; Z79.82 Long term (current) use of aspirin; Z79.899 Other long term (current) drug therapy; Z87.19 Personal history of other diseases of the digestive system

== ENCOUNTER → 2019-08-07 | Outpatient (CLI) | payer OTHER, MEDICARE | LOC: SJCVC 10:22 | PROVIDERS: ATTEND Internal Medicine Cardiovascular Disease | DX: E78.00 Pure hypercholesterolemia, unspecified (principal); K21.9 Gastro-esophageal reflux disease without esophagitis; G20 Parkinson's disease; I10 Essential (primary) hypertension; Z79.82 Long term (current) use of aspirin; Z82.49 Family history of ischemic heart disease and other diseases of the circulatory system; Z79.899 Other long term (current) drug therapy; Z87.891 Personal history of nicotine dependence ==

== ENCOUNTER → 2020-05-12 | Outpatient (CLI) | payer OTHER, MEDICARE | LOC: SJCVC 09:56 | PROVIDERS: ATTEND Internal Medicine Cardiovascular Disease | DX: R94.31 Abnormal electrocardiogram [ECG] [EKG] (principal); I49.1 Atrial premature depolarization; E78.00 Pure hypercholesterolemia, unspecified; I10 Essential (primary) hypertension; R73.03 Prediabetes; G20 Parkinson's disease; K21.9 Gastro-esophageal reflux disease without esophagitis; Z90.49 Acquired absence of other specified parts of digestive tract; Z98.890 Other specified postprocedural states; Z88.8 Allergy status to other drugs, medicaments and biological substances; Z79.82 Long term (current) use of aspirin; Z79.899 Other long term (current) drug therapy; Z87.891 Personal history of nicotine dependence; Z82.49 Family history of ischemic heart disease and other diseases of the circulatory system ==